=== PATIENT | male | born 1960 | race Caucasian/White ===

== ENCOUNTER 2020-04-18 01:40 | Observation (INO) | payer OTHER, SELFPAY ==
[2020-04-18] VITALS (8 sets, daily range): BP systolic 123–139; BP diastolic 58–81; PULSE 53–63; RESP 18–22; TEMP 36.2–37; O2SAT 94–98; BMI 40.4
--- NOTE | ~2020-04-18 | XR_ITS ---
EXAMINATION: XR chest 1V portable DATE: 04/19/2020 06:04 INDICATION: COVID 19 TECHNIQUE: frontal view of the chest was obtained. COMPARISON: None FINDINGS: Patchy airspace opacities in the bilateral lower lung zones. No pleural effusion or pneumothorax. The cardiomediastinal silhouette is normal. Suture anchor at the left humeral head suggesting prior rota tor cuff repair. IMPRESSION: 1. Patchy airspace opacities in the lower lung zones consistent with pneumonia with differential incl uding atelectasis or less likely pulmonary edema. Reviewed, dictated and finalized at location A. IMPRESSION: 1. Patchy airspace opacities in the lower lung zones consistent with pneumonia with differential including atelectasis or less likely pulmonary edema.
--- NOTE | 2020-04-18 02:16 | ADMGEN ---
This patient, Terence Delong, was admitted to [facility] Surg Room 328-01. Patient/family oriented to hospital policies and general routines including ID bracelet, bed and alarms, visiting hours, pain management, procedures, bathroom and other care routines, personal items, smoking policy, room service/diet, and visiting hours. Valuables list has been completed. Information on how to activate the Rapid Response Team has been discussed. Patient/Family are encouraged to report perceived risks to care and to ask questions if they do not understand what they are told or what they should do.
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
[2020-04-18 06:33] LABS: Lactate Dehydrogenase 381 U/L (313-618)
[2020-04-18 06:43] LABS: Alanine Aminotransferase 36 U/L (4-50); Albumin Level 3.8 g/dL (3.5-5.1); Alkaline Phosphatase 74 U/L (38-126); Anion Gap 9 mmol/L (8-16); Aspartate Amino Transferase 31 U/L (17-59); Bilirubin,Total 0.4 mg/dL (0.2-1.3); Blood Urea Nitrogen 17 mg/dL (9-20); Calcium 8.7 mg/dL (8.4-10.2); Carbon Dioxide 25 mmol/L (22-30); Chloride 100 mmol/L (98-107); Estimated CRCL calculation 88 ml/min; Estimated Glomerular Filt Rate > 60; Glucose 218 mg/dL (75-110); Potassium 4.6 mmol/L (3.4-5.0); Sodium 134 mmol/L (137-145)
[2020-04-18] MEDS: ALBUTEROL SULFATE (*SP) AEROSOL 1 PUFF 6 PUFF INHALATION ×4 (09:01→20:04)
[2020-04-18] MEDS: FLUTICASONE PROPIONATE 0.05% NA SPR 16 GM BTL (*BKC) 2 SPRAY NASAL ×2 (09:13→17:17)
[2020-04-18] MEDS: ENOXAPARIN 40 MG/0.4 ML SYRINGE SUB-Q ×2 (09:14→21:19)
[2020-04-18] MEDS: LORATADINE 10 MG TABLET PO (09:14)
[2020-04-18] MEDS: ACETAMINOPHEN 325 MG TABLET 650 MG PO (12:59)
--- NOTE | 2020-04-18 16:30 | PM.IMPN ---
Progress Note: A&P Assessment and Plan (1) Pneumonia due to COVID-19 virus: Code(s): U07.1 - COVID-19; J12.89 - Other viral pneumonia Status: Acute Assessment and Plan: ----- patient feels improved and is off oxygen. Will continue Decadron and he will likely discharge tomorrow. He is a transfer so we do not have his original x-ray but we will get x-ray tomorrow as well as routine labs continue home Symbicort, Zyrtec, Singulair and Flonase. (2) Acute respiratory failure with hypoxia: Code(s): J96.01 - Acute respiratory failure with hypoxia Status: Acute Assessment and Plan: ----- patient was able to be weaned off oxygen and is walking around the room. . Time Spent With Patient Time with patient: 25 - 35 minutes Subjective Date/time seen: 04/18/20 16:30 Interval history: Pt is a 60-year-old male here for COVID-19 pneumonia. Patient was seen today and is starting to feel much better than he has been in the last few days. He still has a dry cough but has been walking around the room and not significantly short of breath. He is eating and drinking well and has not noticed any loss of taste or smell. he denies diarrhea or constipation. He has little bit of left-sided stabbing chest pain when he coughs. Review of Systems Review of Systems: All systems reviewed & are unremarkable except as noted in HPI and below Exam Narrative: Exam Narrative: General: Well developed well nourished patient Resting comfortably in bed in [facility] HEENT: normocephalic Neck: supple Neuro: Alert and oriented x4 CV:RRR Resp:CTA Abd: Soft, non distended. No pain to palpation. Positive bowel sounds Extremities: No swelling, erythema, or pain to palpation. Objective Data Vital Signs Vital Signs: Vital Signs - 24 hr 04/18/20 01:40 04/18/20 04:00 04/18/20 08:00 Temperature 98.6 F 98.2 F 97.2 F L Pulse Rate 59 L 63 53 L Respiratory Rate 20 20 22 H Blood Pressure 130/65 125/58 L 123/77 Pulse Oximetry 96 96 98 04/18/20 09:05 04/18/20 09:57 Temperature Pulse Rate Respiratory Rate Blood Pressure Pulse Oximetry 96 94 Intake/Output Intake/Output: Intake & Output 04/15/20 04/16/20 04/17/20 04/18/20 23:59 23:59 23:59 23:59 Intake Total 480 Balance 480 Meds/Results Medications: Active Medications Generic Name Dose Route Start Last Admin Trade Name Freq PRN Reason Stop Dose Admin Acetaminophen 650 mg 04/18/20 05:23 04/18/20 12:59 Tylenol Tablet PO 650 mg Q4H PRN Administration Mild Pain (1-3) or Fever Albuterol 6 puff 04/18/20 08:00 04/18/20 12:50 Proventil Hfa INHALATION 6 puff QIDRT LUKE Administration Budesonide/Formoterol Fumarate 2 puff 04/18/20 09:00 04/18/20 09:02 Symbicort 160-4.5 Mcg (*Sp) Inhaler INHALATION 2 puff Q12HR LUKE Administration Dexamethasone Sodium Phosphate 6 mg 04/18/20 09:00 04/18/20 09:15 Decadron 10 Mg/Ml Inj IV PUSH 04/27/20 09:01 6 mg DAILY LUKE Administration Dextrose 12.5 gm 04/18/20 08:32 Dextrose 50% Syringe IV PUSH PRN PRN Hypoglycemia Protocol Enoxaparin Sodium 40 mg 04/18/20 09:00 04/18/20 09:14 Lovenox SUB-Q 40 mg Q12HR LUKE Administration Fluticasone Propionate 2 spray 04/18/20 09:00 04/18/20 09:13 Flonase 0.05% Nasal Badger NASAL 2 spray BID LUKE Administration Glucagon 1 mg 04/18/20 08:32 Glucagon For Inj IM PRN PRN Hypoglycemia Protocol Glucose 15 gm 04/18/20 08:32 Glutose 15 PO PRN PRN Hypoglycemia Protocol Dextrose 1,000 mls @ 100 mls/hr 04/18/20 08:32 Dextrose 5% 1,000 Ml IVPB PRN PRN Hypoglycemia Protocol Loratadine 10 mg 04/18/20 09:00 04/18/20 09:14 Claritin PO 05/18/20 09:01 10 mg DAILY LUKE Administration Montelukast Sodium 10 mg 04/18/20 21:00 Singulair PO HS [facility] Labs Labs: Laboratory Results - last 24 hr 04/18/20
[2020-04-18] MEDS: INSULIN ASPART (*BKC) 100 UNITS/ML SUB-Q (17:20)
[2020-04-18 17:58] LABS: Glucose Point of Care 183 (65-105)
[2020-04-18] MEDS: MONTELUKAST SODIUM 10 MG TABLET PO (21:20)
[2020-04-19] VITALS: BP 154/91; PULSE 59; RESP 22; TEMP 36.4; O2SAT 92
[2020-04-19 02:23] LABS: Glucose Point of Care 283 (65-105)
[2020-04-19] MEDS: ACETAMINOPHEN 325 MG TABLET 650 MG PO (06:04)
--- NOTE | 2020-04-19 06:10 | PC.NURSE ---
Notified by tech that patient had put on his call light and requested Tylenol. This nurse took ordered Tylenol to him. See MAR. Patient appears agitated and angry, patient yelling, I have eleazar asking for 10 hours for Tylenol and cough syrup. You do not know who the fuck I am, I will fuck you up, Where is the Tylenol with codeine in it?. Explained to patient that I would notify the MD for cough syrup. MD notified. See MAR.
[2020-04-19] MEDS: guaiFENesin/DEXTROMETHORPHAN 10 ML UDC 5 ML PO ×2 (06:30→11:32)
[2020-04-19 06:32] LABS: Basophils Percent Auto 0.1 % (0.2-1.2); Eosinophils Percent Auto 0.1 % (0-4.4); Hematocrit 40.4 % (42.0-52.0); Hemoglobin 13.7 g/dL (14.0-18.0); Immature Granulocyte Absolute 0.05 K/mm3 (0.00-0.031); Immature Granulocyte Percent A 0.6 % (0-0.5); Lymphocytes Absolute Auto 1.12 K/mm3 (0.9-3.2); Lymphocytes Percent Auto 13.6 % (18.3-44.2); Mean Corpuscular HGB Conc 33.9 g/dl (32-36); Mean Corpuscular Hemoglobin 30.6 pg (26-34); Mean Corpuscular Volume 90.4 fl (80-100); Mean Platelet Volume 10.3 fl (7.4-10.4); Monocytes Absolute Auto 0.4 K/mm3 (0.1-0.6); Monocytes Percent Auto 4.4 % (2.6-8.5); Neutrophils Absolute Auto 6.7 K/mm3 (1.3-6.7); Neutrophils Percent Auto 81.2 % (45.5-73.1); Platelet Count Result 187 k/mm3 (150-375); Red Blood Count 4.47 M/mm3 (4.6-6.20); Red Cell Distribution Width 12.3 % (11.5-14.5); White Blood Count 8.3 K/mm3 (4.5-10.0)
[2020-04-19 06:47] LABS: Alanine Aminotransferase 31 U/L (4-50); Albumin Level 3.8 g/dL (3.5-5.1); Alkaline Phosphatase 68 U/L (38-126); Anion Gap 8 mmol/L (8-16); Aspartate Amino Transferase 27 U/L (17-59); Bilirubin,Total 0.2 mg/dL (0.2-1.3); Blood Urea Nitrogen 16 mg/dL (9-20); CRP 3.6 mg/dL (<1.0); Calcium 8.7 mg/dL (8.4-10.2); Carbon Dioxide 28 mmol/L (22-30); Chloride 97 mmol/L (98-107); Estimated CRCL calculation 96 ml/min; Estimated Glomerular Filt Rate > 60; Glucose 95 mg/dL (75-110); Potassium 3.7 mmol/L (3.4-5.0); Sodium 133 mmol/L (137-145)
[2020-04-19 07:00] LABS: D Dimer 0.27 ug/mL (<0.48)
[2020-04-19 08:00] VITALS: BP 130/74; PULSE 77; RESP 16; TEMP 37.3; O2SAT 95
[2020-04-19] MEDS: ENOXAPARIN 40 MG/0.4 ML SYRINGE SUB-Q (08:17)
[2020-04-19] MEDS: FLUTICASONE PROPIONATE 0.05% NA SPR 16 GM BTL (*BKC) 2 SPRAY NASAL (08:18)
[2020-04-19] MEDS: LORATADINE 10 MG TABLET PO (08:18)
[2020-04-19 08:30] VITALS: PULSE 77; RESP 16; O2SAT 95
[2020-04-19] MEDS: ALBUTEROL SULFATE (*SP) AEROSOL 1 PUFF 6 PUFF INHALATION ×3 (09:36→15:47)
[2020-04-19 09:37] VITALS: O2SAT 95
[2020-04-19 11:55] LABS: Glucose Point of Care 98 (65-105)
[2020-04-19 12:30] VITALS: BP 136/78; PULSE 60; RESP 16; TEMP 37.1; O2SAT 94
--- NOTE | 2020-04-19 14:38 | PM.DS ---
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 Pt wants to go home. Not needing oxygen. Still has mild cough. 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 Continue home Symbicort, Zyrtec, Singulair and Flonase.Medrol dose pack and Zpack. Adviced him to quartarine at home. Pt has a adviced that she gets tested as well. (2) Acute respiratory failure with hypoxia: Code(s): J96.01 - Acute respiratory failure with hypoxia Status: Resolved Assessment and Plan: Pt is off oxygen vitals are stable. Remains stable, for discharge today. Pt wants to go home. Discussed labs and cxr results pt needs to quarantine at home. Pt to have 14 days of work. If he worsens can return to ED. In 2 weeks can follow with PCP. DS: Summary Time Spent with Patient Time attestation: Total time spent providing and/or coordinating discharge services:20 minutes on day of dischrage Exam Narrative: Exam Narrative: Temp Pulse Resp BP Pulse Ox 37.3 C 77 16 130/74 95 04/19/20 08:00 04/19/20 08:30 04/19/20 08:30 04/19/20 08:00 04/19/20 09:37 95% on RA Vitals stable Not needing oxygen DS: Data Data Completed and Pending Labs on day of discharge: Labs from last 24 hours 04/19/20 04/19/20 04/19/20 08:04 06:22 06:22 WBC RBC Hgb Hct MCV MCH MCHC RDW Plt Count MPV Immature Gran % (Auto) Neut % (Auto) Lymph % (Auto) Crenshaw % (Auto) Eos % (Auto) Baso % (Auto) Lymph # (Auto) Crenshaw # (Auto) Eos # (Auto) Baso # (Auto) Abs Immat Gran (auto) Absolute Neuts (auto) Absolute Nucleated RBC Nucleated RBC % D-Dimer Sodium Potassium Chloride Carbon Dioxide Anion Gap BUN Creatinine Estim Creat Clear Calc Estimated GFR Glucose POC Capillary Glucose 98 Hemoglobin A1c 6.0 H Calcium Ferritin 533.00 H Total Bilirubin Direct Bilirubin AST ALT Alkaline Phosphatase C-Reactive Protein Total Protein Albumin 04/19/20 04/19/20 04/19/20 06:22 06:22 06:22 WBC 8.3 RBC 4.47 L Hgb 13.7 L Hct 40.4 L MCV 90.4 MCH 30.6 MCHC 33.9 RDW 12.3 Plt Count 187 MPV 10.3 Immature Gran % (Auto) 0.6 H Neut % (Auto) 81.2 H Lymph % (Auto) 13.6 L Crenshaw % (Auto) 4.4 Eos % (Auto) 0.1 Baso % (Auto) 0.1 L Lymph # (Auto) 1.12 Crenshaw # (Auto) 0.4 Eos # (Auto) 0.0 Baso # (Auto) 0.0 Abs Immat Gran (auto) 0.05 H Absolute Neuts (auto) 6.7 Absolute Nucleated RBC 0.0 Nucleated RBC % 0.0 D-Dimer 0.27 Sodium 133 L Potassium 3.7 Chloride 97 L Carbon Dioxide 28 Anion Gap 8 BUN 16 Creatinine 1.00 Estim Creat Clear Calc 96 Estimated GFR > 60 Glucose 95 POC Capillary Glucose Hemoglobin A1c Calcium 8.7 Ferritin Total Bilirubin 0.2 Direct Bilirubin 0.0 AST 27 ALT 31 Alkaline Phosphatase 68 C-Reactive Protein 3.6 H Total Protein 6.0 L Albumin 3.8 04/18/20 04/18/20 17:18 12:53 WBC RBC Hgb Hct MCV MCH MCHC RDW Plt Count MPV Immature Gran % (Auto) Neut % (Auto) Lymph % (Auto) Crenshaw % (Auto) Eos % (Auto) Baso % (Auto) Lymph # (Auto) Crenshaw # (Auto) Eos # (Auto) Baso # (Auto) Abs Immat Gran (auto)
[2020-04-20 02:22] LABS: Glucose Point of Care 146 (65-105)
== END 2020-04-19 16:17 | disposition home or self-care (01) ==
PROVIDERS: Physician Assistant; Admitting Provider Internal Medicine; PCP Family Medicine; Visit Provider Family Medicine
DX: U07.1 COVID-19 (principal); J12.89 Other viral pneumonia; J44.9 Chronic obstructive pulmonary disease, unspecified; J96.01 Acute respiratory failure with hypoxia
CPT/HCPCS: 36415; 71045; 80048; 80053; 80076; 82728; 83036; 83615; 85025; 85380; 86140; 94640; 96372; 96374; A9270; G0378; G0379; J1100; J1650; J1815

== ENCOUNTER 2022-10-15 17:33 | Emergency (ER) | payer OTHER, SELFPAY ==
--- NOTE | ~2022-10-15 | XR_ITS ---
EXAMINATION: XR chest 2V DATE: 10/15/2022 19:07 INDICATION: Chest pain and shortness of breath TECHNIQUE: frontal and lateral views of the chest were obtained. COMPARISON: Chest radiograph dated 04/19/2020 FINDINGS: Mild opacities at the bilateral anterior lung bases likely combination of atelectasis/scarring and sm all paracardial fat pads. No other airspace opacities, pulmonary edema, pleural effusion or pneumotho rax. The heart size is normal. Mild to moderate thoracic spondylosis. IMPRESSION: 1. Mild opacities at the anterior lung bases and favor atelectasis/scarring along side paracardial fa t pads over pneumonia. Reviewed, dictated and finalized at location A. R LAB TECHNICIAN IMPRESSION: 1. Mild opacities at the anterior lung bases and favor atelectasis/scarring tej ng side paracardial fat pads over pneumonia.
[2022-10-15 17:53] VITALS: BP 147/91; PULSE 51; RESP 16; TEMP 36.2; O2SAT 98
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
--- NOTE | 2022-10-15 18:41 | ECG_ITS ---
Measurements Intervals [place] Rate: 48 P: 19 AL: 194 QRS: 10 QRSD: 97 T: 10 QT: 448 QTc: 403 Interpretive Statements SINUS BRADYCARDIA NO PREVIOUS ECG AVAILABLE FOR COMPARISON Electronically Signed On 10-16-2022 15:34:34 [employer] by Peter Woodward M.D.
== END 2022-10-15 19:55 | disposition home or self-care (01) ==
PROVIDERS: Emergency Provider Nurse Practitioner Family; PCP Family Medicine
DX: J40 Bronchitis, not specified as acute or chronic (principal)
CPT/HCPCS: 71046; 93005; 99213; G0463